=== PATIENT | male | born 1960 | race Caucasian/White ===

== ENCOUNTER 2020-03-15 21:51 | Emergency (ER) | payer BC ==
[~2020-03-15] VITALS: Ht 175.3 cm; Wt 86.2 kg
[2020-03-15] MEDS ORDERED: HYDROMORPHONE 1 MG/1 ML DISP.SYRIN IM ONE (22:00)
[2020-03-15] MEDS ORDERED: LIDOCAINE 2% (UROJET) 10 ML JELLY MM ONE ×2 (22:09→22:15)
[2020-03-15] MEDS ORDERED: HYDROMORPHONE 1 MG/1 ML DISP.SYRIN ONE (22:09)
--- NOTE | 2020-03-15 22:28 | NUR ---
Inserted guillermo catheter, pt tolerated procedure well, urine sample sent to lab.
[2020-03-15 22:37] LABS: *BILIRUBIN,URIN NEGATIVE (NEGATIVE); *BLOOD, URINE 3+ (NEGATIVE); *CLARITY,URINE SLIGHTLY CLOUDY (CLEAR); *COLOR,URINE DARK YELLOW (YELLOW); *KETONES,URINE NEGATIVE (NEGATIVE); *UROBILINOGEN,URINE 0.2 E.U./dl (NORMAL); LEUKOCYTE ESTERASE ,URINE NEGATIVE (NEGATIVE); NITRITE, URINE NEGATIVE (NEGATIVE); PH,URINE 5.5 (5.0-8.0); UGLUCOSE NEGATIVE (NEGATIVE)
--- NOTE | 2020-03-15 22:48 | NUR ---
Patient discharged to home in stable condition. Written and verbal after care instructions given. Patient verbalizes understanding of instructions. Stressed follow up or return to ER for worsening s/s. Patient ambulated out of ER with steady gait, no acute signs of distress, VSS, all belongings taken, instructed not to drive, to be driven home by .
[2020-03-15 22:50] VITALS: BP 146/89
[2020-03-16 02:32] LABS: BACTERIA,URINE NONE SEEN /HPF (NONE SEEN); RBC,URINE 50-80 /HPF (0-3); SQUAMOUS EPITHELIAL CELL,UR FEW /HPF (NONE SEEN); WBC,URINE 0-3 /HPF (0-3)
== END 2020-03-15 22:51 | disposition home or self-care (01) ==
LOC: ER 21:55
DX: N40.1 Benign prostatic hyperplasia with lower urinary tract symptoms (principal); R33.8 Other retention of urine; E78.5 Hyperlipidemia, unspecified; I10 Essential (primary) hypertension
CPT/HCPCS: 51702; 81001; 87086; 96372; 99284; J1170; A4663; C1758